=== PATIENT | female | born 1940 | race Caucasian/White ===

== ENCOUNTER → 2016-10-30 | Outpatient (CLI) | payer OTHER ==
--- NOTE | 2016-10-31 08:43 | DX ---
DEXA Bone Mineral Densitometry Clinical Indications: 76-year-old postmenopausal female with suspected estrogen deficiency low bone mineral density versus osteoporosis. M 81.0, Z 12.38 Comparison: None. Technique: Bone Mineral Densitometry (BMD) by Dual Energy X-Ray Absorptiometry (DEXA) was performed utilizing the STRATUSCORE scanner. The lumbar spine was evaluated in the AP projection. Bilater al hips and one forearm were evaluated in the AP projection. Vertebral fracture assessment was also performed. AP Lumbar Spine: The L1, L2, L3 and L4 vertebral bodies are evaluated. BMD: 1.074 gm/cm2 T-score: -1.0 SD Z-score:1.1 SD AP Left Hip: BMD: 0.744 gm/cm2 T-score: -2.1 SD Z-score: 0.1 SD AP Right Hip: BMD: 0.750 gm/cm2 T-score: -2.0 SD Z-score: 0 SD AP Left Forearm: BMD: 0.687 gm/cm2 T-score: -2.2 SD Z-score: 0.4 SD Vertebral Fracture Assessment: No significant fracture deformity. Conclusion: 1. Considering the lowest measured site, the patient has low bone mineral density and is at increase d risk for fracture. 2. The ten year risk for any major osteoporotic fracture is 15 % and for a hip fracture is 4.6 %. 3. Given the lowest measured site is the forearm, recommend excluding hyperparathyroidism as etiolog y of low bone mineral density. Recommendations: 1. If not previously performed, consider excluding secondary metabolic causes of bone loss (reported to be present in as many as 30% of patients with normal Z scores). Basic laboratory evaluation [facility] include blood chemistries (calcium, phosphorus, alkaline phosphatase, liver function tests, creati nine, total protein), complete blood count, serum 25-OH- vitamin D3 level, 24-hour urine calcium, serum TSH and serum PTH. Targeted laboratory testing based on individual patient circumstances [facility] include serum electrophoresis (SPEP or UPEP), anti-tissue transglutaminase antibody levels (yuliet c disease) , serum bone specific alkaline phosphatase, bone turnover markers (urine, serum) or fibro blast growth factor 23 (FGF 23)(evaluate for unexplained osteomalacia). 2. If secondary causes are excluded, then consider initiating treatment with a bisphosphonate (such as Fosamax, Actonel or Boniva). If the patient is unable to use an oral bisphosphonate, another agen t such as IV bisphosphonates (Boniva or Reclast), teriparatide (Forteo), a selective estrogen medical secretary receptionist tor modulator (Evista) or Denosumab ( anti RANKL monoclonal antibody) might be considered. 3. If antiresorptive therapy is initiated and if clinically indicated, consider obtaining a baseline and 3 month followup bone resorption marker (NTX, CTX, TRAP5b or Pyridinoline, deoxypyridinoline) t o monitor the therapeutic effect. 4. Check serum hydroxy vitamin D3 level (optimal > 50 ng/ml). 5. Osteoporosis prevention and treatment begins by modifying risk factors. The patient should be enc ouraged to participate in a regular exercise program that includes weightbearing and muscle strength ening regimens, as is clinically appropriate. 6. Recommend follow-up DEXA in 2 years to assess the efficacy of pharmacologic intervention and/or c orrection of appropriate secondary cause.
== END ==
LOC: BRMIMAGING 14:07
PROVIDERS: ATTEND Family Medicine
DX: Z12.31 Encounter for screening mammogram for malignant neoplasm of breast (principal); Z13.820 Encounter for screening for osteoporosis; M85.80 Other specified disorders of bone density and structure, unspecified site
CPT/HCPCS: G0202

== ENCOUNTER → 2017-03-21 | Outpatient (CLI) | payer OTHER | LOC: CIMAGING 15:02 | PROVIDERS: ATTEND Family Medicine | DX: I83.891 Varicose veins of right lower extremity with other complications (principal) | CPT/HCPCS: 76882-PO ==

== ENCOUNTER 2018-03-04 06:09 | Day surgery (SDC) | payer OTHER ==
[2018-03-04] MEDS ORDERED: DIAZEPAM 5 MG TAB PO ONE (06:11)
[2018-03-04] MEDS ORDERED: ASPIRIN EC 325 MG TAB PO ONE ×2 (06:11→06:30)
[2018-03-04] MEDS ORDERED: FAMOTIDINE 20 MG TAB PO ONE (06:11)
[2018-03-04] MEDS ORDERED: diphenhydrAMINE 25 MG CAP PO ONE ×2 (06:11→06:30)
[2018-03-04] MEDS ORDERED: NS 1,000 ML IV ONE (06:11)
[2018-03-04] MEDS ORDERED: DIAZEPAM 5 MG TAB ONE (06:30)
[2018-03-04] MEDS ORDERED: FAMOTIDINE 20 MG TAB ONE (06:30)
[2018-03-04] MEDS ORDERED: CLOPIDOGREL BISULFATE 75 MG TAB ONE (06:31)
--- NOTE | 2018-03-04 06:31 | CPEKG ---
Heart Rate: 73 RR Interval: 822 P-R Interval: 152 QRSD Interval: 86 QT Interval: 404 QTC Interval: 446 P [place]: 71 QRS [place]: -14 T Wave [place]: 49 EKG Severity - NORMAL ECG - EKG Impression: SINUS RHYTHM Electronically Signed By: Ronald العراقي 04-Mar-2018 08:45:53
--- NOTE | 2018-03-04 06:33 | PDPROPOC ---
Sedation Plan of Care Sedation Plan of Care: mental status noted, patient educated of risks, benefits , alternatives, patient can tolerate sedation ASA Classification: ASA 2 Planned drugs: fentanyl, midazolam Mallampati Score: Class 2 Mallampati Reference Image: Patient passed 3-3-2 rule?: Yes
--- NOTE | 2018-03-04 06:33 | PDHPUP ---
History & Physical Update H&P update statement: This history and physical update is based on an assessment of the patient which was completed after admission or registration (within 24 hours), but prior to the surgery/procedure. H&P update: H&P reviewed & patient examined, no change in patient's condition since H&P completed
[2018-03-04] MEDS ORDERED: CLOPIDOGREL BISULFATE 75 MG TAB PO ONE (06:45)
[2018-03-04 06:50] LABS: PLATELET COUNT 183 10^3/uL (150-400)
[2018-03-04 06:58] LABS: INR 0.96 (0.83-1.16)
[2018-03-04] MEDS ORDERED: LIDOCAINE 1% 300 MG/30 ML SDV ONE (07:04)
[2018-03-04] MEDS ORDERED: IOPAMIDOL (ISOVUE 370) 100 ML BTL IV ONE ×2 (07:05→09:58)
[2018-03-04] MEDS ORDERED: MIDAZOLAM 2 MG/2 ML VIAL ONE (07:05)
[2018-03-04] MEDS ORDERED: fentaNYL 100 MCG/2 ML INJ ONE (07:05)
[2018-03-04] MEDS ORDERED: ATROPINE SULFATE 1 MG/10 ML SYR IVP PRN (08:15)
[2018-03-04] MEDS ORDERED: NITROGLYCERIN 0.4 MG BTL SL PRN (08:15)
[2018-03-04] MEDS ORDERED: HYDROCODONE/APAP 5/325 TAB PO PRN (08:15)
[2018-03-04] MEDS ORDERED: OXYCODONE/APAP 5/325 TAB PO PRN (08:15)
--- NOTE | 2018-03-04 08:51 | CPIP ---
[f rep st] INVASIVE CARDIAC PROCEDURE DATE OF PROCEDURE: 03/04/2018 INDICATION FOR PROCEDURE: Severe shortness of breath. Noninvasive evidence of severe aortic stenosi s. PROCEDURE: 1. Nonselective left groin sheathogram. 2. 7-[place] sheath left common femoral vein. 3. Right heart catheterization with [place] catheter. 4. Bilateral selective coronary angiography. 5. Left subclavian angiography. 6. Abdominal aortogram. HISTORY: Briefly, this is a 77-year-old female with history of COPD, worsening shortness of breath, severe aortic stenosis. The patient was consented for left and right heart catheterization. DESCRIPTION OF PROCEDURE: After informed consent was obtained, the patient was brought to the [facility] ere the left groin was prepped and draped in usual sterile fashion. Using lidocaine, a short 6-[place]yr[place] sheath was placed in the left common femoral artery verified angiographically. A 7-[place]yr[place] sheath le ft common femoral vein. Through the 7-[place]yr[place] sheath a [place] catheter was advanced. Wedge pressu re was measured, mean 14, A-wave 13, V-wave 19. PA pressure was systolic 33, diastolic 10, mean of 2 0. RV pressure systolic 30, diastolic was 2, end of 5, RA pressure was A-wave of 6, V was 3. AO sat was 94%. PA sat was 76%. Cardiac output was measured to be 3.7 by Yordan and 2.4 by cardiac index. At this time the right heart catheter was removed. A JL-4 catheter was then advanced to the left cor onary artery. Images of the left coronary artery revealed long left main. Circumflex system was sma ll but had no significant disease. The LAD was a long vessel which gave off multiple small diagonal arteries, which were healthy and free of disease. The LAD itself appeared to be healthy and free of disease. There was a ramus intermedius which was healthy and free of disease. After the images were obtained, the JR4 catheter was removed. The JR4 catheter was advanced to the right coronary artery. Images of the right coronary artery revealed normal os, prox mid RCA. The RPD and RPLS appeared to be healthy and free of disease. After these images were obtained the JR4 catheter was removed and p laced in the left subclavian artery. Images of the left subclavian artery showed widely patent left subclavian artery with only mild plaque disease in its proximal aspect crossing the clavicular bone. Distally, the left subclavian artery going to the axillary artery appeared to be widely patent. The JL4 catheter was removed. Pigtail catheter was advanced to the descending aorta. Abdominal aortogr am was obtained which showed calcified but patent distal descending aorta. The common iliacs bilater ally appeared to be patent. However, the right common iliac appeared to be slightly narrowed. The i nternal iliacs artery appeared to be patent. The left and right external iliac arteries appeared to be patent. There seemed to be slight calcification at the distal aspect of the right [employer] with takeof f of the profunda and SFA. After these images were obtain the pigtail catheter was removed over an 0 .035 wire and the left groin was closed with manual pressure. Patient tolerated the procedure well w ith no complications. IMPRESSION: 1. Nonobstructive mild plaque disease in the coronary arteries bilaterally. 2. Normal pulmonic pressures. PLAN: Will discuss with Dr. Aranda from CT surgery about access for possible TAVR, most likely left s ubclavian artery appears to be most suitable for the patient's approach. If this is suitable we will plan on performing the procedure within the next 2-3 week. /[id number]/MODL
== END 2018-03-04 12:33 | disposition home or self-care (01) ==
LOC: FCATH 06:09
PROVIDERS: ATTEND Internal Medicine Cardiovascular Disease
DX: I08.3 Combined rheumatic disorders of mitral, aortic and tricuspid valves (principal); J44.9 Chronic obstructive pulmonary disease, unspecified; Z87.891 Personal history of nicotine dependence; I27.20 Pulmonary hypertension, unspecified; G47.34 Idiopathic sleep related nonobstructive alveolar hypoventilation
CPT/HCPCS: J1644; J2250; J3010; Q9967